=== PATIENT | male | born 1980 | race Caucasian/White ===

== ENCOUNTER → 2021-01-02 | Outpatient (CLI) | payer BC ==
--- NOTE | 2021-01-02 21:19 | US ---
EXAMINATION TYPE: US thyroid st tissue head/neck DATE OF EXAM: 01/02/2021 COMPARISON: NONE CLINICAL HISTORY: 40-year-old male E04.1 Thyroid Nodule. The patient's mother has history of thyroid cancer. Technique: Multiple sonographic images of the thyroid gland are obtained. FINDINGS: GLAND SIZE: Right Lobe: 5.0 x 1.6 x 1.7 cm Overall Parenchyma: Slightly heterogeneous. Left Lobe: 5.0 x 1.6 x 2.0 cm Overall Parenchyma: Slightly heterogeneous. Isthmus Thickness: 0.38 cm NODULES RIGHT: # of nodules measured on right: 0 LEFT: # of nodules measured on left: 1 1. 0.5 X 0.4 x 0.4 cm, lower mid, mixed cystic and solid nodule, which is as tall as it is wide, wi th ill-defined margins, without echogenic foci. Prior size: no prior. ISTHMUS: # of nodules measured in the isthmus: 0 Wing Coverer notes: Bilateral neck scanned. Impression appearing lymph node along the right side of the neck measuring 1.5 x 0.9 x 0.4 cm. IMPRESSION: Borderline to mild thyromegaly. Solitary small mixed 5 mm nodule in the left lobe.
== END | disposition home or self-care (01) ==
LOC: RADUSWWP 16:57
PROVIDERS: ATTEND Family Medicine
DX: E04.1 Nontoxic single thyroid nodule (principal)
CPT/HCPCS: 76536

== ENCOUNTER → 2021-01-10 | Outpatient (CLI) | payer BC ==
--- NOTE | 2021-01-10 07:55 | CT ---
EXAMINATION TYPE: CT soft tissue neck wo con DATE OF EXAM: 01/10/2021 HISTORY: Abn US, family history of thyroid CA, pt c/o lump in throat COMPARISON: Thyroid ultrasound [address] DLP: 300 mGycm. Automated Exposure Control for Dose Reduction was Utilized. TECHNIQUE: CT scan of the neck is performed without contrast, axial images are obtained, coronal and sagittal reformatted images are reviewed. FINDINGS: Lack of IV contrast is noted to Limited evaluation for mucosal masses and neck adenopathy. Airway: No suspicious abnormality. Normal size thyroid. Parotid/submandibular glands: No gross abnormality seen. Carotid/Vascular Structures: Bovine type arch which is normal variant. No significant calcified plaqu e. Osseous Structures: No significant abnormality. Other: Scattered prominent but subcentimeter lymph nodes throughout the neck bilaterally. For referen ce there is 1.3 x 1.0 cm right submandibular lymph node axial image 58. No definitive abnormal greate r than 1 cm neck adenopathy. Focal mild/moderate mucosal thickening posterior right maxillary sinus otherwise the paranasal sinuse s are grossly clear. IMPRESSION: Some prominent but subcentimeter bilateral neck lymph nodes. No definitive abnormal great er than 1 cm neck adenopathy. No suspicious mass on noncontrast CT.
== END | disposition home or self-care (01) ==
LOC: RADCTMAIN 07:12
PROVIDERS: ATTEND Family Medicine
DX: I88.9 Nonspecific lymphadenitis, unspecified (principal); Z80.8 Family history of malignant neoplasm of other organs or systems
CPT/HCPCS: 70490

== ENCOUNTER 2021-01-31 12:59 | Day surgery (SDC) | payer BC ==
[2021-01-31 13:53] VITALS: RESP 18; TEMP 98.1
--- NOTE | 2021-01-31 14:44 | US ---
Fine-needle aspiration right submandibular lymph node HISTORY: R 22.1 Maximal barrier technique was utilized. Ultrasound used with sterile technique. Correlation to CT 12/23 and ultrasound thyroid and neck 01/02/2021 Following informed consent the following procedure was performed. The skin overlying the submandibular node in the right neck was localized with ultrasound and the ove rlying skin was prepped and draped. Lidocaine was used for local anesthesia. Under direct ultrasound guidance 3 passes with 22-gauge needle were made and aspirated specimen submitted in formalin to path ology. Following the procedure hemostasis achieved. No immediate complication. Patient remained in st able condition. IMPRESSION: Status post ultrasound-guided fine-needle aspiration of right sided submandibular node, t his procedure performed by the undersigned. Pathology is pending.
[2021-01-31 17:32] VITALS: BP 115/65; PULSE 77
== END 2021-01-31 14:35 | disposition home or self-care (01) ==
LOC: RADPROMAIN 12:59
PROVIDERS: ATTEND Otolaryngology
DX: R22.1 Localized swelling, mass and lump, neck (principal)
CPT/HCPCS: 10005; 88305

== ENCOUNTER → 2021-04-11 | Outpatient (CLI) | payer BC ==
--- NOTE | 2021-04-11 08:08 | US ---
EXAMINATION TYPE: US thyroid st tissue head/neck DATE OF EXAM: 04/11/2021 COMPARISON: NONE CLINICAL HISTORY: R22.1 SWELLING, MASS LUMP IN NECK. Patient had FNA on nodule right lateral neck on 01/31/2021. The area of concern was scanned, right lateral neck. There are 2 ovoid hypoechoic structures noted. T he largest is more superior and measures 1.8 x 0.7 cm. The second one measures 1.5 x 0.5 cm. IMPRESSION: 2 ovoid hypoechoic structures in the right lateral neck are worrisome for possible lymphadenopathy. P lease correlate clinically. CT neck with contrast could be obtained if clinically warranted.
== END | disposition home or self-care (01) ==
LOC: RADUSWWP 07:01
PROVIDERS: ATTEND Otolaryngology
DX: R22.1 Localized swelling, mass and lump, neck (principal)
CPT/HCPCS: 76536

== ENCOUNTER → 2021-04-17 | Outpatient (CLI) | payer BC ==
--- NOTE | 2021-04-17 08:02 | CT ---
EXAMINATION TYPE: CT soft tissue neck wo con DATE OF EXAM: 04/17/2021 COMPARISON: 01/10/2021 HISTORY: Cervical lymphadenitis CT DLP: 311.[address] of the neck was performed from the skull base through the lung apices. The lack of cont rast limits evaluation. AIRWAY: The supraglottic, glottic, and subglottic portions of the airway appear patent and free of mass. SALIVARY GLANDS: The submandibular and parotid glands are free of mass or inflammatory process. THYROID GLAND: No nodules or masses seen. LYMPH NODES: Again noted are subcentimeter lymph nodes bilaterally within the internal jugular chains and submandibular regions. Largest lymph node measures 9.2 mm right submandibular location. No adeno asa greater than 1 cm. LUNG APICES: No nodule or mass is seen. OTHER: Vascular structures are patent. No significant degenerative change of the cervical spine. N o abscess seen. IMPRESSION: Again noted are subcentimeter lymph nodes bilaterally within the internal jugular chains and submandi bular regions. Largest lymph node measures 9.2 mm right submandibular location. No adenopathy greater than 1 cm.
== END | disposition home or self-care (01) ==
LOC: RADCTMAIN 07:02
PROVIDERS: ATTEND Family Medicine
DX: I88.9 Nonspecific lymphadenitis, unspecified (principal)
CPT/HCPCS: 70490

== ENCOUNTER 2021-05-01 08:53 | Day surgery (SDC) | payer BC ==
[2021-05-01 09:15] VITALS: RESP 16; TEMP 98.3
--- NOTE | 2021-05-01 10:37 | US ---
ULTRASOUND GUIDED FNA THYROID BIOPSY: CLINICAL HISTORY: 1.8 cm right neck lymph node FINDINGS: The procedure was explained to the patient. The risks, complications, benefits and alternatives were discussed and any questions were answered. Informed consent was obtained. Patient was placed supin e on the ultrasound table and prepped and draped in the usual sterile fashion. Utilizing a 25 gauge needle, five passes were made into the requested right neck lymph node. Patient was stable throughout the procedure. Pathology is pending. All elements of maximal barrier technique were utilized. IMPRESSION: 1. Successful ultrasound guided FNA thyroid biopsy.
[2021-05-01 10:52] VITALS: BP 109/66; PULSE 65
== END 2021-05-01 10:30 | disposition home or self-care (01) ==
LOC: RADPROMAIN 08:53
PROVIDERS: ATTEND Family Medicine
DX: R59.0 Localized enlarged lymph nodes (principal)
CPT/HCPCS: 10005; 88173; 88305

== ENCOUNTER → 2021-06-07 | Outpatient (CLI) | payer BC ==
--- NOTE | 2021-06-07 08:48 | CT ---
EXAMINATION TYPE: CT soft tissue neck w con DATE OF EXAM: 06/07/2021 HISTORY: Lymphadenopathy COMPARISON: Prior CT neck studies in 2020 CT DLP: 353.3 mGycm. Automated Exposure Control for Dose Reduction was Utilized. TECHNIQUE: CT scan of the neck is performed with IV Contrast, patient injected with 100 mL of Isovue 300, axial images are obtained, coronal and sagittal reformatted images are reviewed. FINDINGS: Airway: No gross abnormality seen. No significant change from prior studies. Parotid/submandibular glands: No gross abnormality seen. No significant change from prior studies. Carotid/Vascular Structures: Redemonstration of bovine type aortic arch which is normal variant . The re is direct origin left vertebral artery from the aortic arch normal variant. No significant plaque or stenosis carotid bulb level. Osseous Structures: No significant abnormality. Other: Better visualized are prominent lymph nodes throughout the neck bilaterally. Largest posterior to right submandibular gland measures 1.4 x 0.9 cm axial image 65 not significantly changed from las t 2 studies. In the left neck on axial image 67 measures 1.5 x 0.6 cm lymph node anterolateral to the carotid and jugular vessels not significantly changed from prior 2 studies. Additional prominent but subcentimeter lymph nodes are redemonstrated bilaterally without new or enlarging greater than 1 cm lymph nodes. Stable right submandibular lymph node reference axial image 63 just deep to the inferior mandible. The paraPharyngeal fat spaces are maintained bilaterally. IMPRESSION: No new or Enlarging greater than 1.0 cm adenopathy on short axis.
== END | disposition home or self-care (01) ==
LOC: RADCTMAIN 07:39
PROVIDERS: ATTEND Otolaryngology Facial Plastic Surgery
DX: E04.1 Nontoxic single thyroid nodule (principal); R59.9 Enlarged lymph nodes, unspecified
CPT/HCPCS: 70491; Q9967

== ENCOUNTER → 2022-01-12 | Outpatient (CLI) | payer BC ==
--- NOTE | 2022-01-12 15:24 | US ---
EXAMINATION TYPE: US thyroid st tissue head/neck DATE OF EXAM: 01/12/2022 COMPARISON: NONE CLINICAL HISTORY: E04.1 THYROID NODULE. Per order, thyroid nodule. GLAND SIZE: Right Lobe: 4.3 x 1.7 x 1.3 cm Overall Parenchyma: homogenous Left Lobe: 4.6 x 1.6 x 1.8 cm Overall Parenchyma: homogeneous Isthmus Thickness: 0.5 cm NODULES RIGHT: # of nodules measured on right: 0 LEFT: # of nodules measured on left: 1 1. 0.4 X 0.4 x 0.3 cm, lower mid, mixed cystic and solid, hypoechoic nodule, which is wider than ta ll, with smooth margins, without echogenic foci. TR 3 Prior size: No prior ISTHMUS: # of nodules measured in the isthmus: 0 Bilateral neck scanned. Two prominent lymph nodes seen on the right and one on the left. Short axis measurement for right lateral superior neck nodes = 0.6 cm and 0.6 cm. Left lateral superior lymph node short axis= 0.4 cm. IMPRESSION: 1. Mildly suspicious nodule left lobe thyroid. Consider follow-up. 2. Two lymph nodes right neck, One noted left neck 2016 ACR TI-RADS LEVEL: TR-RADS 3 - Mildly Suspicious: Follow if > 1.5 cm, FNA if > 2.5 cm *Highest TI-RADS level nodule reported
--- NOTE | 2022-01-14 12:04 | CA ---
Transthoracic Echo Report Name: Juan Ramon Pretty Age: 41 Gender: M : 1980 Exam Date: 01/12/2022 14:47 Exam Location: [facility] Ht (in): 66 Wt (lb): 135 Ordering Physician: Steven Miller MD Attending/Referring Phys: Ashley Arriaza Ophthalmic Technician Eleanor Miranda RDCS Procedure CPT: Indications: I49.8 Cardiac Hx: Technical Quality: Good Contrast 1: Total Dose (mL): Contrast 2: Total Dose (mL): MEASUREMENTS (Male / Female) Normal Values 2D ECHO LV Diastolic Diameter PLAX 3.9 cm 4.2 - 5.9 / 3.9 - 5.3 cm LV Systolic Diameter PLAX 2.2 cm IVS Diastolic Thickness 0.9 cm 0.6 - 1.0 / 0.6 - 0.9 cm LVPW Diastolic Thickness 0.9 cm 0.6 - 1.0 / 0.6 - 0.9 cm LV Relative Wall Thickness 0.5 RV Internal Dim ED PLAX 3.4 cm LA Volume 41.5 cm 18 - 58 / 22 - 52 cm M-MODE Aortic Root Diameter MM 2.4 cm LA Systolic Diameter MM 3.4 cm LA Ao Ratio MM 1.4 AV Cusp Separation MM 2.0 cm DOPPLER AV Peak Velocity 155.5 cm/s AV Peak Gradient 9.7 mmHg LVOT Peak Velocity 146.6 cm/s LVOT Peak Gradient 8.6 mmHg MV Area PHT 4.3 cm Mitral E Point Velocity 95.4 cm/s Mitral A Point Velocity 60.5 cm/s Mitral E to A Ratio 1.6 MV Deceleration Time 178.2 ms TR Peak Velocity 274.9 cm/s TR Peak Gradient 30.2 mmHg Right Ventricular Systolic Press 35.2 mmHg FINDINGS Left Ventricle Normal left ventricular size, wall thickness, systolic function with no obvious regional wall motion abnormalities. Normal left ventricular diastolic filling pattern for age. The ejection fraction is visually estimated at 55-60 %. Right Ventricle The right ventricle is normal in size and function. Right Atrium The right atrium is normal in size. Left Atrium The left atrium is normal in size. Mitral Valve Structurally normal mitral valve without significant stenosis or prolapse. There is no mitral regurgitation. Aortic Valve Structurally normal aortic valve without significant sclerosis or stenosis. There is no aortic regurgitation. Tricuspid Valve Structurally normal tricuspid valve without significant stenosis. Pulmonary artery systolic pressure is normal. Mild tricuspid regurgitation. Pulmonic Valve Structurally normal pulmonic valve without significant stenosis. There is no pulmonic regurgitation. Pericardium Normal pericardium without effusion. Aorta Normal aortic root dimension. CONCLUSIONS Normal LV size and systolic function No valvular abnormalities of any significance Previewed by: Dr. John Nesbitt MD (Electronically Signed) Final Date: 14 January 2022 12:03
== END | disposition home or self-care (01) ==
LOC: RADUSWWP 14:12
PROVIDERS: ATTEND Family Medicine
DX: E04.1 Nontoxic single thyroid nodule (principal); I49.8 Other specified cardiac arrhythmias
CPT/HCPCS: 76536; 93306

== ENCOUNTER → 2024-02-10 | Outpatient (CLI) | payer BC ==
--- NOTE | 2024-02-11 07:42 | US ---
EXAMINATION TYPE: US thyroid st tissue head/neck DATE OF EXAM: 02/10/2024 COMPARISON: NONE CLINICAL INDICATION: Male, 43 years old with history of E04.1 NONTOXIC SINGLE THYROID NODULE; follow up thyroid nodule GLAND SIZE: Right Lobe: 5.0 x 1.7 x 1.6 cm Overall Parenchyma: homogeneous Left Lobe: 4.9 x 1.8 x 1.7 cm Overall Parenchyma: homogeneous Isthmus Thickness: 0.6 cm NODULES RIGHT: # of nodules measured on right: 0 LEFT: # of nodules measured on left: 1 1. 0.6 X 0.5 x 0.7 cm, lower mid, mixed cystic and solid, hypoechoic nodule, which is wider than ta ll, with smooth margins, without echogenic foci. Prior size: 0.4 x 0.4 x 0.3 cm ISTHMUS: # of nodules measured in the isthmus: 0 Bilateral neck scanned, multiple lymph nodes bilaterally as on prior exams, largest on left = 1.7 x 0 .6 x 0.8 cm IMPRESSION: 1. Small thyroid nodules. 2. Lymph node on the left neck discussed above. 2017 ACR TI-RADS LEVEL: TR-RADS 1 - BENIGN: No FNA *Highest TI-RADS level nodule reported
== END | disposition home or self-care (01) ==
LOC: RADUSWWP 15:55
PROVIDERS: ATTEND Family Medicine
DX: E04.1 Nontoxic single thyroid nodule (principal)
CPT/HCPCS: 76536

== ENCOUNTER 2024-03-31 09:15 | Day surgery (SDC) | payer BC ==
[2024-03-30 08:44] VITALS: BMI 22.4
[~2024-03-31 09:15] MED LIST: LACTATED RINGERS 1,000 ML IV SCH
[2024-03-31 10:04] VITALS: RESP 16; TEMP 97.2
[2024-03-31] MEDS: IV FLUID CONTINUATION 1,000 ML IV ONE ×2 (10:09→11:02)
[2024-03-31] MEDS ORDERED: PROPOFOL 10 MG/ML 20 ML VIAL IV ONE (11:14)
--- NOTE | 2024-03-31 11:24 | P.PCN ---
Date of Procedure: 03/31/24 Procedure(s) Performed: BRIEF HISTORY: Patient is a 44-year-old pleasant white male scheduled for an elective colonoscopy as a part of screening for colon cancer. PROCEDURE PERFORMED: Colonoscopy with snare polypectomy. PREOPERATIVE DIAGNOSIS: Screening for colon cancer. IV sedation per Anesthesia. PROCEDURE: After informed consent was obtained, the patient, was brought into the endoscopy unit. IV sedation was administered by Anesthesia under continuous monitoring. Digital rectal examination was normal. Initially the Olympus CF-160 flexible video colonoscope was then inserted in the rectum, gradually advanced into the cecum without any difficulty. Careful examination was performed as the scope was gradually being withdrawn. Ileocecal valve and the appendiceal orifice were visualized and appeared normal. Prep was excellent. Mucosa of the cecum, ascending colon, appeared normal. The intrahepatic flexure there was a 5 mm polyp that was removed by snare polypectomy. Rest of the transverse colon, descending colon, sigmoid colon, and rectum appeared normal. Retroflexion was performed in the rectum and no lesions were seen. The patient tolerated the procedure well. IMPRESSION: 5 mm hepatic flexure polyp status post polypectomy Rest of the colon appeared normal RECOMMENDATIONS: Findings of this examination were discussed with the patient as well as his family. He was advised to follow-up with the biopsy results. If the biopsy reveals adenoma he can have repeat colonoscopy in 5 years with snare polypectomy.
[2024-03-31 11:40] VITALS: BP 91/55; PULSE 67
== END 2024-03-31 12:20 | disposition home or self-care (01) ==
LOC: ORWHC2ENDO 09:15
PROVIDERS: ATTEND Internal Medicine Gastroenterology
DX: D12.3 Benign neoplasm of transverse colon (principal); F17.200 Nicotine dependence, unspecified, uncomplicated
CPT/HCPCS: 88305; 45385; J2704